=== PATIENT | male | born 1970 | race Caucasian/White ===

== ENCOUNTER 2019-05-27 09:32 | Inpatient (IN) ==
[2019-05-17 15:23] LABS: Basophils # (auto) 0.02 K/uL (0-0.2); Basophils % (auto) 0.2 %; Eosinophils # (auto) 0.07 K/uL (0-0.5); Eosinophils % (auto) 0.8 %; Hematocrit (blood only) 41.7 % (42-52); Immature Granulocytes # (auto) 0.02 K/uL (0.00-0.02); Immature Granulocytes % (auto) 0.2 %; Lymphocytes # (auto) 2.14 K/uL (1.2-3.4); Lymphocytes % (auto) 24.8 %; Mean Corpuscular Hemoglobin 27.3 pg (25-34); Mean Corpuscular Hgb Conc 33.6 g/dL (32-36); Mean Corpuscular Volume 81.4 fL (80-100); Mean Platelet Volume 10.9 fL (7.4-10.4); Monocytes # (auto) 0.61 K/uL (0.11-0.59); Monocytes % (auto) 7.1 %; Neutrophils # (auto) 5.76 K/uL (1.4-6.5); Neutrophils % (auto) 66.9 %; Platelet Count 203 K/uL (130-400); RDW Coefficient of Variation 14.5 % (11.5-14.5); RDW Standard Deviation 42.9 fL (36.4-46.3); Red Blood Count 5.12 M/uL (4.7-6.1); White Blood Count 8.62 K/uL (4.8-10.8)
[2019-05-17 15:37] LABS: Partial Thromboplastin Time 28.1 Seconds (21.0-31.0); Prothrombin Time 10.3 Seconds (9.0-12.0)
[2019-05-17 15:54] LABS: Blood Urea Nitrogen 18 mg/dl (7-18); Calcium 8.5 mg/dl (8.5-10.1); Carbon Dioxide 24 mmol/L (21-32); Chloride 112 mmol/L (98-107); Est GFR (African American) 96.1; Glucose 92 mg/dl (70-99); Potassium 3.7 mmol/L (3.5-5.1); Sodium 144 mmol/L (136-145)
--- NOTE | 2019-05-25 12:41 | History and Physical Report ---
DATE OF ADMISSION: 05/27/2019 CHIEF COMPLAINT AND HISTORY OF PRESENT ILLNESS: Back and lower extremity difficulty, weakness, paresthesias, numbness and tingling. He has degenerative changes in the lumbar spine and massive disc herniation at L4-L5. PAST MEDICAL HISTORY: Positive for obesity. No kidney disease, liver disease, asthma, wheezing. Denies any carcinoma, diabetes mellitus. PAST SURGICAL HISTORY: Prior knee surgery, post lumbar spine surgery 2 years ago. MEDICATIONS: Hydrocodone. SOCIAL HISTORY: Nonsmoker, non-ETOH user. REVIEW OF SYSTEMS: Denies any fevers, sweats, chills. Denies any blurred vision, double vision, tinnitus or vertigo. Denies any chest pain, palpitations. No asthma, wheezing, shortness of breath. No nausea, vomiting. No urgency, frequency, dysuria. Has extremity pain, has back pain with walking intolerance. OBJECTIVE: GENERAL: He is 5 feet 7 inches. He is 280 pounds. Alert, oriented. VITAL SIGNS: Blood pressure 130/80, pulse 80, respirations 16, temperature 97.4. CARDIAC: Normal S1, S2, no S3. LUNGS: Clear to auscultation. ABDOMEN: Soft, nontender, obese, but no pain. NEUROLOGICAL: He is weak with plantar flexion, dorsiflexion, pain with straight leg raising. IMPRESSION: Large herniation, lumbar spine with degenerative changes. PLAN: Includes laminectomy and fusion, L4-S1 lumbar spine.
--- NOTE | 2019-05-25 12:46 | Anesthesiology Consultation ---
Date of Service May 25, 2019 Assessment & Plan (1) Encounter for pre-operative examination: History of glidescope intubation Chart Review Chart Review: Acceptable Risk for Surgery and Patient NOT seen in Pre Admission Testing Consults Requested none History Surgery Operation Date: 05/27/19 11:00 Proposed Procedures p L4-L5, L5-S1 Laminectomy and Fusion - Jose Luis Santa DO Allergies Allergy/AdvReac Type Severity Reaction Status Date / Time No Known Allergies Allergy Unknown Verified 05/25/19 12:43 Medications Home Medications Medication Instructions Recorded Confirmed Last Taken oxycodone 5 mg PO Q4H PRN #15 tab 04/26/19 05/25/19 Unknown prednisone 10 mg PO .TAPER 04/26/19 05/25/19 04/26/19 3 tablets Past Medical History Medical History Lumbar disc herniation Chronic back pain Degenerative disc disease Difficult intubation 09/16/16: Glidescope #4, ETT #8.5, HiLo Oral, Grade 1 View Past Family History Family History Grandfather Family history of diabetes mellitus Past Surgical History Surgical History History of back surgery (Inactive) H/O right knee surgery removal of muscle from right calf area to place under patella History of lumbar laminectomy 09/16/16: Glidescope #4, ETT #8.5, HiLo Oral, Grade 1 View History of tonsillectomy Social History Smoking Status: Never smoker Testing Laboratory Results Laboratory Tests 05/17/19 05/17/19 05/17/19 14:55 14:55 14:55 WBC 8.62 Hgb 14.0 Hct 41.7 L Plt Count 203 PT 10.3 INR 1.0 APTT 28.1 Sodium 144 Potassium 3.7 Chloride 112 H Carbon Dioxide 24 BUN 18 Creatinine 1.05 Glucose 92 Laboratory Tests 05/17/19 14:57 Blood Type O Positive Antibody Screen NEGATIVE Electrocardiogram Date: 05/17/19 Findings: + NSR @ (81) and + no change from (09/16/16)
[~2019-05-27 09:32] MED LIST: ACETAMINOPHEN 1000 MG/100 ML IV IV SCH; BACITRACIN INJ 50,000 UNIT VIAL ONE; BUPIVACAINE/EPINEPHRINE 0.5% MPF 1:200,000 30 ML VIAL ONE; CEFAZOLIN 3000MG 72.5 ML IV SCH; DEXAMETHASONE SOD INJ 4 MG/ML VIAL ONE; GELATIN SPONGE SZ 100 ONE; GLYCOPYRROLATE 0.2 MG/ML VIAL ONE; LARYING-O-JET KIT (LTA) ONE; LIDOCAINE HCL 2% 2 ML VIAL/AMP(20MG/ML) INFIL ONE; LR 15ML/HR IV SCH; MIDAZOLAM HCL 1 MG/ML 2ML VIAL ONE; NEOSTIGMINE METHYLSULFATE 5 MG/5 ML SYR ONE; ONDANSETRON INJ 2 MG/ML 2 ML VIAL ONE; PROPOFOL IV EMULSION 10 MG/ML 20 ML VIAL IV ONE; ROCURONIUM BROMIDE 10 MG/ML 5 ML VIAL ONE; SODIUM CHLORIDE 0.9% 1,000 ML IV SCH; SUCCINYLCHOLINE CHLORIDE 20 MG/ML 10 ML VIAL ONE; THROMBIN FOR SOLN 20000 UNIT KIT ONE; VANCOMYCIN HCL 1000MG/20ML VIAL ONE; ePHEDrine sulfate 50 MG/ML SYR ONE; fentaNYL citrate 100 MCG/2 ML VIAL ONE
[2019-05-27] MEDS ORDERED: ATROPINE SULFATE 0.1 MG/ML 10ML SYR IV PRN (10:45)
[2019-05-27] MEDS ORDERED: ePHEDrine sulfate 50 MG/ML AMP IV PRN (10:45)
[2019-05-27] MEDS ORDERED: ONDANSETRON INJ 2 MG/ML 2 ML VIAL IV PRN ×2 (10:45→15:51)
[2019-05-27] MEDS ORDERED: HYDROmorphone INJ 2 MG/ML SYR/VIAL IV PRN (10:45)
[2019-05-27] MEDS ORDERED: fentaNYL citrate 100 MCG/2 ML VIAL IV PRN (10:45)
--- NOTE | 2019-05-27 10:49 | History & Physical Bridge Note ---
Date of Service May 27, 2019 History & Physical Bridge Note I have examined the patient, reviewed the History & Physical and in the interval since the performance of the History & Physical I have noted the following changes of clinical significance: no changes noted
[2019-05-27] MEDS ORDERED: ROCURONIUM BROMIDE 10 MG/ML 5 ML VIAL ONE ×3 (11:41→12:46)
[2019-05-27] MEDS ORDERED: HYDROmorphone INJ 2 MG/ML SYR/VIAL ONE (11:42)
--- NOTE | 2019-05-27 14:20 | Fluoroscopy Report ---
INTRAOPERATIVE RADIOGRAPH CLINICAL HISTORY: L4-L5 spinal fusion. Fluoroscopy time: 8 seconds. FINDINGS: A single spot fluoroscopic view of the lower lumbar spine is presented. There has been lami nectomy and posterior fusion at L4-L5. Interpedicular screws are present at both levels. The orthoped ic hardware appears intact. IMPRESSION: Intraoperative image from L4 -L5 spinal fusion. Electronically signed by: Kyle Dorsey M.D. 05/27/2019 2:19 PM
--- NOTE | 2019-05-27 14:24 | Post Operative Brief Note ---
PG Immediate Post Op with CF Date of Surgery May 27, 2019 Pre & Post Diagnosis Operation Date: 05/27/19 11:00 Pre-Op Diagnosis: Disc Herniation; Spinal Stenosis Lumbar Region Post-Op Diagnosis: Disc Herniation; Spinal Stenosis Lumbar Region Procedure Operation Date: 05/27/19 11:00 Actual Procedures p L4-L5, L5-S1 Laminectomy and Fusion(Not Applicable) - Jose Luis Santa DO Surgeon Jose Luis Santa DO [employer] Estimated Blood Loss 100 Findings Consistent with Post-Op Diagnosis Specimens Specimen Description: none Drains [place] Catheter Disposition Accompanied Patient To Recovery: Yes Overlapping Procedure I was immediately available: during the entire case.
--- NOTE | 2019-05-27 15:15 | Anesthesiology Progress Note ---
Date of Service May 27, 2019 Anesthesia Post Procedure Vital Signs Vital Signs: Temp Pulse Resp BP Pulse Ox 05/27/19 15:10 36.3 C L 86 11 L 128/80 96 05/27/19 15:00 81 12 134/73 95 05/27/19 14:50 85 11 L 134/83 95 05/27/19 14:40 82 12 141/79 H 98 05/27/19 14:30 73 17 137/83 100 05/27/19 14:23 37 C 75 10 L 143/82 H 99 05/27/19 09:45 36.9 C 82 18 129/97 95 Pain Intensity Left Leg: Pain Intensity: 7 Lower Medial Back: Pain Intensity: 2 Transfer of Care Handoff Completed per policy Notes Mental Status: alert / awake / arousable and participated in evaluation Patient Amnestic to Procedure: Yes Nausea / Vomiting: adequately controlled Pain: adequately controlled Airway Patency, RR, SpO2: stable & adequate BP & HR: stable & adequate Hydration State: stable & adequate Anesthetic Complications: no major complications apparent
[2019-05-27] MEDS ORDERED: ONDANSETRON 4 MG TAB PO PRN (15:51)
[2019-05-27] MEDS ORDERED: MAGNESIUM HYDROXIDE SUSP 30 ML UDC PO PRN (15:51)
[2019-05-27] MEDS ORDERED: BISACODYL 10 MG SUPP PR PRN (15:51)
[2019-05-27] MEDS ORDERED: ALUMINUM/MAGNESIUM SUSP 30 ML UDC PO PRN (15:51)
[2019-05-27] MEDS ORDERED: DO NOT ADMINISTER PNEUMOCOCCAL VACCINE PRN (15:51)
[2019-05-27] MEDS ORDERED: FAMOTIDINE 20 MG TAB PO PRN (15:51)
[2019-05-27] MEDS ORDERED: PROMETHAZINE HCL 12.5 MG in SODIUM CHLORIDE 0.9% 50 ML IV PRN (15:51)
[2019-05-27] MEDS ORDERED: METOCLOPRAMIDE HCL INJ 5 MG/ML 2 ML VIAL IV PRN (15:51)
[2019-05-27] MEDS ORDERED: DO NOT ADMINISTER FLU VACCINE PRN (15:51)
[2019-05-27] MEDS ORDERED: NALOXONE HCL 0.4 MG/1 ML VIAL/CARP IV PRN (15:51)
[2019-05-27] MEDS ORDERED: predniSONE 10 MG TABLET PO SCH (15:51)
[2019-05-27] MEDS ORDERED: SOD PHOSPHATE/SOD BIPHOSPHATE ENEMA 132 ML BTL PR PRN (15:51)
[2019-05-27] MEDS ORDERED: ACETAMINOPHEN 1,000 MG/100 ML VIAL IV PRN (15:51)
[2019-05-27] MEDS: OXYCODONE HCL IR 5 MG TAB (IMMEDIATE RELEASE) PO PRN ×2 (16:11→20:48)
[2019-05-27] MEDS: SODIUM CHLORIDE 0.9% 1000ML 1,000 ML IV SCH (16:12)
[2019-05-27] MEDS: CEFAZOLIN 2000MG 2,000 MG/15 ML SYR IV SCH (17:39)
[2019-05-27] MEDS: HYDROmorphone INJ 0.5 MG/0.5 ML SYR IV PRN (17:40)
--- NOTE | 2019-05-27 19:35 | Operative Report ---
DATE OF OPERATION: 05/27/2019 PREOPERATIVE DIAGNOSES: Massive disc herniation at L5-S1, migrating up to L4-L5, degenerative changes of lumbar spine, mild to moderate instability, L4-L5. POSTOPERATIVE DIAGNOSES: Massive disc herniation at L5-S1, migrating up to L4-L5, degenerative changes of lumbar spine, mild to moderate instability, L4-L5. PROCEDURE: 1. Lumbar spine laminectomy L4-L5 and L5-S1, foraminotomy, partial facetectomy. 2. Evacuation of a massive disc herniation at L5-S1 that had migrated up superiorly underneath the L5 nerve root. 3. Pedicle screw instrumentation at L4-L5. 4. Posterolateral fusion L4-L5. SURGEON: Jose Luis Santa DO. PROCESS COACH: Mikey Castellon PA-C. BLOOD LOSS: 100 mL. DESCRIPTION OF PROCEDURE: The patient was taken to the operating room and general intubated anesthetic provided to the patient, placed prone, scrubbed, prepped and draped sterile. I made a skin incision. We meticulously dissected down to the lamina, facet joints, taking the soft tissue out over the transverse processes of L4-L5 and the sacral ala. I decompressed the neural elements. The patient had singular left-sided pain, the right side was unaffected. We decompressed more thoroughly on the left hand side. I decompressed from L4-L5 and L5-S1. I paid particular attention to the L5 nerve root, the disc herniation in my opinion had herniated out at L5-S1, had migrated superiorly underneath the axilla of the L5 nerve root compressing the cauda equina. I decompressed at L4-L5, then at L5-S1, then retracted as the L5 nerve root to make sure there was no injury to the nerve. A massive amount of disc material was retrieved and decompressed the nerve root on the ventral surface. I felt the patient had some instability. There was a low grade spondylolisthesis at L4-L5. I decompressed the area. On wide decompression, I felt the L4-L5 was slightly unstable. I felt it was prudent to go ahead and stabilize this area. I did not feel it was needed for interbody fusion. I was able to safely find the pedicle screws at L4 and L5 on the left and L4 and L5 on the right. We locked this down the construct. The x-rays, crosstable, looked superb. We irrigated thoroughly with approximately 500-600 mL of fluid. We bone grafted out over the transverse process and the facet joints to initiate the posterolateral fusion. We then closed over Hemovac drain and vancomycin powder with #1 Vicryl suture, 2-0 and 3-0 nylon on the skin. Sterile dressings applied. The patient was successfully brought back to the recovery room in satisfactory stable condition. Sponge and needle count correct at the close of the procedure. IMPLANTS USED: By the [employer]. Bone graft used was combination of autograft and demineralized bone matrix. Formal timeout was taken during the procedure and the patient was marked in the preop holding area before coming back to the operating room. I attest to the content of the Intraoperative Record and any orders documented therein. Any exception s are noted below.
[2019-05-27] MEDS: DOCUSATE SODIUM/SENNA 50/8.6MG TAB PO SCH (20:49)
[2019-05-28] MEDS: OXYCODONE HCL IR 5 MG TAB (IMMEDIATE RELEASE) PO PRN ×5 (01:03→20:34)
[2019-05-28] MEDS: CEFAZOLIN 2000MG 2,000 MG/15 ML SYR IV SCH (01:07)
[2019-05-28] MEDS: SODIUM CHLORIDE 0.9% 1000ML 1,000 ML IV SCH (05:57)
[2019-05-28] MEDS: POLYETHYLENE (MIRALAX) 17 GM PACK PO SCH ×3 (06:23→18:20)
--- NOTE | 2019-05-28 07:27 | Anesthesiology Progress Note ---
Date of Service May 28, 2019 Anesthesia Post Procedure Vital Signs Vital Signs: Temp Pulse Pulse Resp BP Pulse Ox 05/28/19 06:57 36.8 C 88 18 129/88 97 05/28/19 03:11 36.9 C 95 H 16 118/78 96 05/27/19 23:46 37.0 C 96 H 16 120/78 96 05/27/19 18:41 36.7 C 96 H 18 124/79 95 05/27/19 17:37 36.5 C 100 H 18 127/83 94 05/27/19 16:41 36.7 C 94 H 18 113/74 97 05/27/19 16:08 36.5 C 91 H 17 124/79 95 05/27/19 15:40 36.8 C 94 H 14 135/82 95 05/27/19 15:15 89 12 141/77 H 96 05/27/19 15:10 36.3 C L 86 11 L 128/80 96 05/27/19 15:00 81 12 134/73 95 05/27/19 14:50 85 11 L 134/83 95 05/27/19 14:40 82 12 141/79 H 98 05/27/19 14:30 73 17 137/83 100 05/27/19 14:23 37 C 75 10 L 143/82 H 99 05/27/19 09:45 36.9 C 82 18 129/97 95 Pain Intensity Left Leg: Pain Intensity: 7 Lower Medial Back: Pain Intensity: 7 Notes Mental Status: alert / awake / arousable and participated in evaluation Patient Amnestic to Procedure: Yes Nausea / Vomiting: adequately controlled Pain: adequately controlled Airway Patency, RR, SpO2: stable & adequate BP & HR: stable & adequate Hydration State: stable & adequate Anesthetic Complications: Pt Satisfied with anesthetic care
[2019-05-28] MEDS: HYDROmorphone INJ 0.5 MG/0.5 ML SYR IV PRN (15:31)
[2019-05-28] MEDS: DOCUSATE SODIUM/SENNA 50/8.6MG TAB PO SCH (20:34)
[2019-05-29] MEDS: OXYCODONE HCL IR 5 MG TAB (IMMEDIATE RELEASE) PO PRN ×3 (00:32→09:26)
[2019-05-29] MEDS: POLYETHYLENE (MIRALAX) 17 GM PACK PO SCH ×2 (00:33→05:24)
[2019-05-29] MEDS: HYDROmorphone INJ 0.5 MG/0.5 ML SYR IV PRN (07:33)
--- NOTE | 2019-05-31 08:01 | Discharge Summary ---
He is alert, oriented, minimal complaints of pain, taking p.o. No chest pain, shortness of breath. He has had an uneventful 48-hour stay. We will get him up and ambulatory. We will discharge him home. He has instructions, precautions, he has warnings, he has prescriptions, and he has a rolling walker. Followup examination in 10 days. Instructions provided.
== END 2019-05-29 09:34 | disposition home or self-care (01) | DRG 460 ==
LOC: ASU 09:32 → 3E 14:35